=== PATIENT | female | born 1955 | race Caucasian/White ===

== ENCOUNTER 2024-06-04 06:26 | Day surgery (SDC) | payer OTHER ==
[2024-06-03 15:48] VITALS: BMI 20.6
[~2024-06-04 06:26] MED LIST: Fluorouracil 100 MG, Enoxaparin 25 MG, EPINEPHrine 0.3 MG in Ophthalmic Irrigation Solu... IRR SCH
[2024-06-04] MEDS ORDERED: Cyclopentolate 1% Opth Drop 2 ML BOT ONE (07:03)
[2024-06-04] MEDS ORDERED: PHENYLephrine 2.5% Ophth Soln 15 ml Bottle ONE (07:03)
[2024-06-04] MEDS ORDERED: fentaNYL PF 100 MCG/2 ML SYRINGE ONE (07:53)
[2024-06-04] MEDS ORDERED: Midazolam HCl 2 mg/2 ml Vial ONE (07:53)
[2024-06-04] MEDS ORDERED: Enoxaparin 30 MG (0.3 mL) SYRINGE ONE (08:20)
[2024-06-04] MEDS ORDERED: Maxitrol 0.1% Opth Oint 3.5 GM TUBE ONE (08:20)
[2024-06-04] MEDS ORDERED: Bupivacaine 0.75% 10 ML VIAL ONE (08:20)
[2024-06-04] MEDS ORDERED: Triamcinolone 40 MG/ML VIAL ONE (08:20)
[2024-06-04] MEDS ORDERED: Lidocaine 1% PF 5 ML VIAL ONE (08:20)
[2024-06-04] MEDS ORDERED: CEFAZOLIN 1 GM VIAL ONE (08:20)
[2024-06-04] MEDS ORDERED: PROPOFOL 200 MG/20 ML VIAL ONE (08:20)
[2024-06-04] MEDS ORDERED: Lidocaine 4% PF 5 ML AMP ONE (08:20)
== END 2024-06-04 10:20 | disposition home or self-care (01) ==
LOC: SDC 06:26
PROVIDERS: ATTEND Ophthalmology Retina Specialist
PROC: 08T43ZZ Resection of Right Vitreous, Percutaneous Approach (ICD-10-PCS; principal; 2024-06-04)
DX: H33.021 Retinal detachment with multiple breaks, right eye (principal)
CPT/HCPCS: 67025; 67108; J0171; J0690; J1650; J2250; J2704; J3301; J3490; J9190